=== PATIENT | female | born 2005 | race Caucasian/White ===

== ENCOUNTER 2024-11-07 00:17 | Emergency (ER) | payer OTHER, SELFPAY ==
[2024-11-07 00:19] VITALS: BP 130/88; PULSE 97; RESP 20; TEMP 36.6; O2SAT 100
--- NOTE | 2024-11-07 01:17 | EKG12_ITS ---
Test Reason : CHEST OTHER Blood Pressure : */* mmHG Vent. Rate : 94 BPM Atrial Rate : 94 BPM P-R Int : 146 ms QRS Dur : 78 ms QT Int : 350 ms P-R-T Axes : 68 84 60 degrees QTcB Int : 437 ms Normal sinus rhythm Normal ECG Confirmed by CASSI COLLINS, KARLOS ([id number]), deputy editor in chief RENEE WOOD ([id number]) on 11/09/2024 8:14:21 AM Referred By: BB Confirmed By: KARLOS YE MD
--- NOTE | 2024-11-07 01:18 | ED.VIS.CHEST ---
HPI History of Present Illness Chief Complaint: Chest Other Informant: patient Narrative Narrative: Patient has been having substernal nonpleuritic chest discomfort burning that she thought was reflux for the past week to 1.5 weeks, only triggered when she lies down, it has been going up into her left shoulder and left upper arm for the last few days as well. No associated dyspnea. No exertional discomfort, it is only at nighttime when she lies down. She has tried some Tums but it did not seem to help very much. She has minimal discomfort right now somewhat into her back and left shoulder while sitting in the ED. No leg pain or swelling. No recent travel out of the area or hospitalization/surgery. No history of DVT or PE. PE Risk Factors: Negative for Recent Travel/Surgery, Recent Immobilization, Prior DVT or PE, Cancer or OCP + Smoking + >/=35 PFSH PFSH Medical History Anxiety Home Medications ?Medication ?Instructions ?Recorded ?Last Taken ?Type pantoprazole 40 mg tablet,delayed 40 mg PO DAILY #30 tabs 11/07/24 Unknown Rx release sertraline 150 mg capsule 150 mg PO DAILY 11/07/24 Unknown History Allergy/AdvReac Type Severity Reaction Status Date / Time amoxicillin Allergy Severe Hives Verified 11/07/24 00:19 Surgical History no surgical history Social History Smoking Status: Never smoker ROS ROS ED Constitutional Constitutional ED: Denies chills or fever(s) Eyes Eyes: Denies change in vision or diplopia ENT ENT ED: Denies rhinorrhea or sore throat Cardiovascular Cardiovascular: Reports chest pain and radiating jaw, neck or arm pain; Denies palpitations Respiratory/Chest Respiratory/Chest: Denies cough or dyspnea Gastrointestinal Gastrointestinal: Denies abdominal pain, diarrhea, nausea or vomiting Genitourinary Genitourinary ED: Denies dysuria or hematuria Musculoskeletal Musculoskeletal: Denies back pain or neck pain Integumentary Denies abscess or rash Neurologic Neurologic: Denies headache(s), paresthesias or weakness Psychiatric Psychiatric: Reports anxiety; Denies suicidal thoughts EXAM Physical Exam Const Vital Signs: 11/07/24 00:19 11/07/24 00:22 11/07/24 02:19 Temperature 97.8 F Temperature Source Oral Pulse Rate 97 98 Respiratory Rate 20 H 16 Respiratory Effort Normal Non-Labored Blood Pressure 130/88 H 106/72 Blood Pressure Mean 102 83 Pulse Ox 100 100 Oxygen Delivery Method Room Air Room Air Positive well nourished and well developed General Appearance ED: well developed and NAD HEENT Reports moist mucous membranes normocephalic and atraumatic Eyes PERRL and EOMs intact bilaterally Neck full ROM and supple Resp normal respiratory effort and clear to auscultation bilaterally Cardio regular rate, regular rhythm and no murmurs GI non-tender and non-distended Auscultation: normoactive bowel sounds Palpation: soft Back/Spine no CVA tenderness General Back: other FROM Extremity normal to inspection General Extremety ED: Negative for edema, pulses abnormal or tenderness General Extremity: Negative for edema or pulses abnormal Neuro oriented x3, CN's II-XII intact bilaterally and no sensory deficits noted Sensorium / Orientation: awake and alert Motor Exam: strength 5/5 throughout Psych Mood & Affect: anxious Skin no rashes or lesions noted and no wounds Heart Score History: Slightly/Non-Suspicious ECG: Normal Age: </= 45 years Risk Factors: No Risk Factors Troponin: </= Normal Limit Score: 0 MDM MDM MDM Narrative Medical decision making narrative: EKG is normal, also obtain labs including troponin which is less than the lower limit, normal. In the meantime she was given a GI cocktail and pantoprazole, and on reexamination she states the medicine helped quickly and made her shoulder pain go away. Patient is reassured, going to give her prescription for pantoprazole and have her follow-up with her doctor she is comfortable with that plan. Lab Data Attestation: I reviewed the patient's lab results. Labs: Laboratory Results - last 24 hr 11/07/24 01:32 WBC 7.5 RBC 3.82 L Hgb 12.1 Hct 35.8 L MCV 93.7 MCH 31.7 MCHC 33.8 RDW Std Deviation 41.2 RDW Coeff of Malik 12.0 Plt Count 161 MPV 8.8 Immature Gran % (Auto) 0.300 Neut % (Auto) 51.6 Lymph % (Auto) 35.7 [place] % (Auto) 10.7 H Eos % (Auto) 1.6 Baso % (Auto) 0.1 Absolute Neuts (auto) 3.8 Absolute Lymphs (auto) 2.66 Nucleated RBC % 0 Sodium 137 Potassium 3.8 Chloride 102 Carbon Dioxide 24.1 Anion Gap 12 BUN 12 Creatinine 0.58 L Est GFR (MDRD) Non-Af 132 BUN/Creatinine Ratio 21.5 H Glucose 107 H Calcium 9.4 Troponin T High Sens < 6 Rhythm Strip Rhythm Strip: Sinus Rhythm Rate: 94 Ectopy: None EKG Initial EKG: Attestation: I personally reviewed and interpreted this EKG as follows: Interpretation: Sinus Rhythm and No Acute Injury Pattern Comments: Nml axis & intervals; nml EKG Discharge Plan Triage Chief Complaint: Chest Other ED Provider: Andrew Murguia Dx/Rx/DC Orders Clinical Impression: Chest pain due to GERD Instructions: ED Chest Pain, Noncardiac, ED GERD (Adult) Prescriptions: New pantoprazole 40 mg tablet,delayed release (DR/EC) 40 mg PO DAILY Qty: 30 0RF No Action sertraline 150 mg capsule 150 mg PO DAILY Primary Care Provider: IMELDA CORDERO Referrals: IMELDA CORDERO [Other] - 1-2 Weeks Print Language: Italian Disposition Disposition: Home, Self Care
[2024-11-07] MEDS: Lidocaine 2% Viscous15 ML UDC 15 ML PO (01:29)
[2024-11-07 01:37] LABS: Hematocrit 35.8 % (37-47); Hemoglobin 12.1 g/dL (12.0-15.0); Immature Granulocytes Count 0.020 X10^3/uL (0.0-0.0); Mean Corp Hgb Conc 33.8 g/dL (32-36); Mean Corpuscular Volume 93.7 fL (81-99); Mean Platelet Vol. 8.8 fl (6.2-12.0); NRBC Flagged by Analyzer 0 % (0-5); Platelet Count 161 K/mm3 (150-450); RBC Distribution Width CV 12.0 % (11.6-14.6); RBC Distribution Width SD 41.2 fl (35.1-43.9); Red Blood Count 3.82 M/mm3 (4.2-5.4); White Blood Count 7.5 K/mm3 (4.4-11.0)
[2024-11-07 02:19] VITALS: BP 106/72; PULSE 98; RESP 16; O2SAT 100
[2024-11-07 03:32] VITALS: BP 112/72; PULSE 100; RESP 18; TEMP 36.9; O2SAT 100
[2024-11-07 03:56] LABS: Anion Gap 12 (5-15); BUN 12 mg/dL (4-19); BUN/Creat Ratio 21.5 RATIO (10-20); Calcium,Total 9.4 mg/dL (7.6-11.0); Carbon Dioxide 24.1 mmol/L (21.0-32.0); Chloride 102 mmol/L (98-108); Glucose 107 mg/dL (70-99); Potassium 3.8 mmol/L (3.3-5.1); Troponin T High Sensitivity < 6 ng/L (<=14)
== END 2024-11-07 03:33 | disposition home or self-care (01) ==
PROVIDERS: Emergency Provider Emergency Medicine; Visit Provider Emergency Medicine
DX: R07.9 Chest pain, unspecified (principal); K21.9 Gastro-esophageal reflux disease without esophagitis; F41.9 Anxiety disorder, unspecified; Z79.899 Other long term (current) drug therapy
CPT/HCPCS: 80048; 84484; 85025; 93005; 99285; A4216